=== PATIENT | female | born 1960 | race Caucasian/White ===

== ENCOUNTER 2025-04-01 09:06 | Outpatient (CLI) | payer MEDICARE, SELFPAY ==
--- NOTE | ~2025-04-01 | XR_ITS ---
XR hip BI wo pelvis 04/01/2025 09:51 Indication: Hip pain Procedure: AP pelvis and 2 views each hip Comparison: No prior studies for comparison. Findings: Mild osteoarthritis of the hips which is symmetric. Pelvic rings intact. Sacral foramen are symmetric. There are are lower lumbar spinal fusion changes at L4-5. No acute fracture or traumatic malalignment. Impression: 1: No acute bone or joint abnormality. Reviewed, dictated and finalized at location O. Impression: 1: No acute bone or joint abnormality.
== END 2025-04-01 09:07 | disposition home or self-care (01) ==
LOC: MICIMG 09:10
PROVIDERS: PCP Family Medicine; Visit Provider Family Medicine
DX: M16.0 Bilateral primary osteoarthritis of hip (principal)
CPT/HCPCS: 73521

== ENCOUNTER 2025-04-12 14:13 | Outpatient (CLI) | payer MEDICARE, SELFPAY ==
--- NOTE | ~2025-04-12 | US_ITS ---
EXAMINATION: US pelvic complete w TV, 04/12/2025 14:16 CDT HISTORY: Other noninflammatory disorders of ovary, fallopian tube and Comparison: None Technique: Adams-scale and color Doppler images were obtained. Findings: Uterus: The uterus is not identified. . Right Ovary:Right ovary 1.8 x 1 x 1.3 cm, subcentimeter cystic focus 8 x 8 mm. Left Ovary: Left ovary not identified. Free Fluid: None Impression: Cystic right ovarian focus too small to characterize. This may represent a postmenopausal atrophic cyst, cystic ovarian neoplasm not excluded. Follow-up is recommended to assess stability Reviewed, dictated and finalized at location P. Impression: Cystic right ovarian focus too small to characterize. This may represent a post menopausal atrophic cyst, cystic ovarian neoplasm not excluded. Follow-up is re commended to assess stability
== END 2025-04-12 14:14 | disposition home or self-care (01) ==
LOC: MICIMG 14:13
PROVIDERS: PCP Family Medicine; Visit Provider Family Medicine
DX: E27.9 Disorder of adrenal gland, unspecified (principal); N83.8 Other noninflammatory disorders of ovary, fallopian tube and broad ligament; N83.201 Unspecified ovarian cyst, right side
CPT/HCPCS: 76830; 76856